=== PATIENT | female | born 1950 | race American Indian/Alaskan Native ===

== ENCOUNTER 2020-11-20 13:29 | Observation (INO) | payer MEDICARE ==
--- NOTE | 2020-11-20 14:31 | Emergency Department Report ---
ED General Adult HPI - General Chief complaint: Fall Stated complaint: FALL PUI?: No Time Seen by Provider: 11/20/20 14:17 Source: patient, EMS ( EMS documentation not available at time of chart dictation ), RN notes reviewed, old records reviewed Mode of arrival: Stretcher Limitations: Other (Dementia and poor historian) - History of Present Illness Initial comments: The patient was evaluated in the emergency department for symptoms described in the history of present illness. He/she was evaluated in the context of the [facility] COVID-19 pandemic, which necessitated consideration that the patient might be at risk for infection with the virus that causes COVID-19. Institutional protocols and algorithms that pertain to the evaluation of patients at risk for COVID-19 are in a state of rapid change based on information released by regulatory bodies including the CDC and federal and state organizations. These policies and algorithms were followed during the patient's care in the emergency department. Please note that these policies, procedures and recommendations changed on a rapid basis. This patient is a 70-year-old female. She is not known to myself previously. She has a history of dementia, cervical strain, hypertension, hypernatremia, and type 2 diabetes. She is sent here from her local nursing care facility for evaluation of closed head injury and fall. History obtained by team [facility], and obtaining collateral information. Patient reportedly had an unwitnessed fall yesterday. Patient is sent to the emergency room today for evaluation. The patient is awake, moving 4 extremities, but minimally verbal. She will not tell me what happened. She will not tell me if she is having any pain. She will not describe qualitative nature of her symptoms, exacerbating factors, relieving factors, or aggravating factors. As per collateral information obtained from [facility] staff, no additional complaints or concerns. -: days(s) Location: head Severity scale (0 -10): 0 Quality: other Consistency: other Improves with: other Worsens with: other Associated Symptoms: other - Related Data Previous Rx's Medication Instructions Recorded Last Taken Type Famotidine [Pepcid] 20 mg PO BID #60 tablet 05/04/20 Unknown Rx oxyCODONE /ACETAMINOPHEN [Percocet 1 tab PO Q6H PRN #14 tablet 05/04/20 Unknown Rx 5/325 mg] Allergies Allergy/AdvReac Type Severity Reaction Status Date / Time No Known Allergies Allergy Unverified 05/03/20 19:15 ED Review of Systems ROS: Stated complaint: FALL Other details as noted in HPI Comment: Unobtainable due to pts medical conditions ED Past Medical Hx - Past Medical History Hx Hypertension: Yes Hx Diabetes: Yes Hx Psychiatric Treatment: Yes (dementia) - Social History Smoking Status: Unknown if ever smoked - Medications Home Medications: Home Medications Medication Instructions Recorded Confirmed Last Taken Type Famotidine [Pepcid] 20 mg PO BID #60 tablet 05/04/20 Unknown Rx oxyCODONE /ACETAMINOPHEN [Percocet 1 tab PO Q6H PRN #14 tablet 05/04/20 Unknown Rx 5/325 mg] ED Physical Exam - General Limitations: Other (Patient is awake. The patient is moving 4 extremities. The patient is demented) General appearance: in no apparent distress - Head Head exam: Present: normocephalic, other (Supraorbital ecchymosis) - Eye Eye exam: Present: normal appearance, EOMI - ENT ENT exam: Present: normal exam, normal orophraynx, mucous membranes moist, normal external ear exam - Neck Neck exam: Present: normal inspection, full ROM. Absent: tenderness, meningismus - Respiratory Respiratory exam: Present: normal lung sounds bilaterally. Absent: respiratory distress, wheezes, rales, rhonchi, stridor, decreased breath sounds - Cardiovascular Cardiovascular Exam: Present: regular rate, normal rhythm, normal heart sounds. Absent: bradycardia, tachycardia, irregular rhythm, systolic murmur, diastolic murmur, rubs, gallop - GI/Abdominal GI/Abdominal exam: Present: soft. Absent: distended, tenderness, guarding, rebound, rigid, pulsatile mass - Extremities Exam Extremities exam: Present: normal inspection (Chronic venous stasis changes noted in the bilateral lower extremities), full ROM, pedal edema (1+ edema in the bilateral lower extremities), other (2+ pulses noted in the bilateral upper and lower extremities. There is no palpable cord. negative Homans sign. Muscular compartments are soft. The pelvis is stable.). Absent: calf tenderne ss - Back Exam Back exam: Present: normal inspection, full ROM. Absent: tenderness, CVA tenderness (R), CVA tenderness (L), paraspinal tenderness, vertebral tenderness - Neurological Exam Neurological exam: Present: other (Patient awake. Patient demented. Patient moving 4 extremities. No facial droop. Tongue midline. EOMI) - Skin Skin exam: Present: warm, dry, intact, normal color. Absent: rash ED Course Vital Signs 11/20/20 11/20/20 11/20/20 14:00 14:16 14:19 Temperature 98.5 F Pulse Rate 94 H 90 Respiratory 18 18 Rate Blood Pressure 160/94 [Right] O2 Sat by Pulse 92 99 Oximetry 11/20/20 17:02 Temperature 99.3 F Pulse Rate 92 H Respiratory 18 Rate Blood Pressure 139/69 [Right] O2 Sat by Pulse 97 Oximetry - Reevaluation(s) Reevaluation #1: 11/20/20 15:40 Differential diagnosis, including but not limited to: Closed head injury, cervical spine injury, electrolyte derangement, pneumonia, urinary tract infection, mechanical fall, orthostasis, vagal event, structural cardiac disease Assessment and plan: 70-year-old female, resolved hypoxia, who was afebrile, with reassuring vital signs, moving 4 extremities, protecting her airway, with a nonspecific and unremarkable physical examination. Patient requires urgent e valuation for fall, CT scan of the brain and cervical spine. Patient is demented, and therefore, does not have decision-making capacity, and is trying to get herself out of the stretcher, and does not respond to verbal techniques, or show of force. She will require temporary restraints, medication with haloperidol and Ativan, EKG, urinalysis, rectal temperature, and noncontrast CT scan of the brain and cervical spine. Elevated troponin reviewed and appreciated, this is nonspecific, patient appears to have normal renal function. We will discuss with cardiology once initial diagnostics have resulted. 11/20/20 16:17 Patient received haloperidol and Ativan. She is still awake and moving 4 extremities, not allowing us to obtain EKG, urinalysis, CT scan of the brain and cervical spine. Patient is demented and does not have decision-making capacity, she will therefore be medicated with Geodon, to allow for acquisition of time sensitive diagnostics. Please note that patient's agitation and underlying dementia has led to a delay in acquisition of diagnostic testing. Reevaluation #2: 11/20/20 17:05 Have discussed patient's history, physical, pertinent laboratory studies and EKG findings with cardiology on-call, Dr. Gordon, of [facility] We agreed to not initiate systemic anticoagulation, and we will give aspirin assuming CT scan of the brain negative for acute findings. Suspect that this is a type II troponin leak. He does advised admission for observation and urgent cardiology consultation would be reasonable. He advises that his group can follow in consultation. CT scan brain, cervical spine pending. Reevaluation #3: 11/20/20 18:09 CT scan of the brain negative for acute findings. Aspirin ordered. Repeat EKG and repeat troponin ordered. Hospital physician, Dr. Villagran, to admit patient to the medical service. Medical decision makin-year-old female, status post fall which was unwitnessed, with abnormal EKG and elevated troponin, to be admitted for observation, urgent cardiology consultation, and further inpatient management. ED Medical Decision Making - Lab Data Result diagrams: 11/20/20 14:34 11/20/20 14:34 Vital Signs 11/20/20 11/20/20 11/20/20 14:00 14:16 14:19 Temperature 98.5 F Pulse Rate 94 H 90 Respiratory 18 18 Rate Blood Pressure 160/94 [Right] O2 Sat by Pulse 92 99 Oximetry Lab Results 11/20/20 11/20/20 11/20/20 Range/Units 14:34 14:34 14:34 WBC 5.3 (4.5-11.0) K/mm3 RBC 4.73 (3.65-5.03) M/mm3 Hgb 13.8 (10.1-14.3) gm/dl Hct 41.3 (30.3-42.9) % MCV 87 (79-97) fl MCH 29 (28-32) pg MCHC 34 (30-34) % RDW 14.6 (13.2-15.2) % Plt Count 234 (140-440) K/mm3 Lymph % (Auto) 14.1 (13.4-35.0) % [place] % (Auto) 8.9 H (0.0-7.3) % Eos % (Auto) 0.0 (0.0-4.3) % Baso % (Auto) 0.1 (0.0-1.8) % Lymph # (Auto) 0.7 L (1.2-5.4) K/mm3 [place] # (Auto) 0.5 (0.0-0.8) K/mm3 Eos # (Auto) 0.0 (0.0-0.4) K/mm3 Baso # (Auto) 0.0 (0.0-0.1) K/mm3 Seg Neutrophils % 76.9 H (40.0-70.0) % Seg Neutrophils # 4.1 (1.8-7.7) K/mm3 PT 12.4 (12.2-14.9) Sec. INR 0.94 (0.87-1.13) Sodium 145 (137-145) mmol/L Potassium 3.7 (3.6-5.0) mmol/L Chloride 108.2 H (98-107) mmol/L Carbon Dioxide 28 (22-30) mmol/L Anion Gap 13 mmol/L BUN 10 (7-17) mg/dL Creatinine 0.6 (0.6-1.2) mg/dL Estimated GFR > 60 ml/min BUN/Creatinine Ratio 17 % Glucose 132 H (65-100) mg/dL Calcium 9.3 (8.4-10.2) mg/dL Troponin T (0.00-0.029) ng/mL Salicylates (2.8-20.0) mg/dL Acetaminophen (10.0-30.0) ug/mL Plasma/Serum Alcohol (0-0.07) % 11/20/20 11/20/20 11/20/20 Range/Units 14:34 14:34 14:34 WBC (4.5-11.0) K/mm3 RBC (3.65-5.03) M/mm3 Hgb (10.1-14.3) gm/dl Hct (30.3-42.9) % MCV (79-97) fl MCH (28-32) pg MCHC (30-34) % RDW (13.2-15.2) % Plt Count (140-440) K/mm3 Lymph % (Auto) (13.4-35.0) % [place] % (Auto) (0.0-7.3) % Eos % (Auto) (0.0-4.3) % Baso % (Auto) (0.0-1.8) % Lymph # (Auto) (1.2-5.4) K/mm3 [place] # (Auto) (0.0-0.8) K/mm3 Eos # (Auto) (0.0-0.4) K/mm3 Baso # (Auto) (0.0-0.1) K/mm3 Seg Neutrophils % (40.0-70.0) % Seg Neutrophils # (1.8-7.7) K/mm3 PT (12.2-14.9) Sec. INR (0.87-1.13) Sodium (137-145) mmol/L Potassium (3.6-5.0) mmol/L Chloride (98-107) mmol/L Carbon Dioxide (22-30) mmol/L Anion Gap mmol/L BUN (7-17) mg/dL Creatinine (0.6-1.2) mg/dL Estimated GFR ml/min BUN/Creatinine Ratio % Glucose (65-100) mg/dL Calcium (8.4-10.2) mg/dL Troponin T (0.00-0.029) ng/mL Salicylates < 0.3 L (2.8-20.0) mg/dL Acetaminophen 5.0 L (10.0-30.0) ug/mL Plasma/Serum Alcohol 0.01 (0-0.07) % 04/03/ Range/Units 14:34 WBC (4.5-11.0) K/mm3 RBC (3.65-5.03) M/mm3 Hgb (10.1-14.3) gm/dl Hct (30.3-42.9) % MCV (79-97) fl MCH (28-32) pg MCHC (30-34) % RDW (13.2-15.2) % Plt Count (140-440) K/mm3 Lymph % (Auto) (13.4-35.0) % [place] % (Auto) (0.0-7.3) % Eos % (Auto) (0.0-4.3) % Baso % (Auto) (0.0-1.8) % Lymph # (Auto) (1.2-5.4) K/mm3 [place] # (Auto) (0.0-0.8) K/mm3 Eos # (Auto) (0.0-0.4) K/mm3 Baso # (Auto) (0.0-0.1) K/mm3 Seg Neutrophils % (40.0-70.0) % Seg Neutrophils # (1.8-7.7) K/mm3 PT (12.2-14.9) Sec. INR (0.87-1.13) Sodium (137-145) mmol/L Potassium (3.6-5.0) mmol/L Chloride (98-107) mmol/L Carbon Dioxide (22-30) mmol/L Anion Gap mmol/L BUN (7-17) mg/dL Creatinine (0.6-1.2) mg/dL Estimated GFR ml/min BUN/Creatinine Ratio % Glucose (65-100) mg/dL Calcium (8.4-10.2) mg/dL Troponin T 0.041 H (0.00-0.029) ng/mL Salicylates (2.8-20.0) mg/dL Acetaminophen (10.0-30.0) ug/mL Plasma/Serum Alcohol (0-0.07) % Lab Results 11/20/20 11/20/20 11/20/20 Range/Units 14:34 14:34 14:34 WBC 5.3 (4.5-11.0) K/mm3 RBC 4.73 (3.65-5.03) M/mm3 Hgb 13.8 (10.1-14.3) gm/dl Hct 41.3 (30.3-42.9) % MCV 87 (79-97) fl MCH 29 (28-32) pg MCHC 34 (30-34) % RDW 14.6 (13.2-15.2) % Plt Count 234 (140-440) K/mm3 Lymph % (Auto) 14.1 (13.4-35.0) % [place] % (Auto) 8.9 H (0.0-7.3) % Eos % (Auto) 0.0 (0.0-4.3) % Baso % (Auto) 0.1 (0.0-1.8) % Lymph # (Auto) 0.7 L (1.2-5.4) K/mm3 [place] # (Auto) 0.5 (0.0-0.8) K/mm3 Eos # (Auto) 0.0 (0.0-0.4) K/mm3 Baso # (Auto) 0.0 (0.0-0.1) K/mm3 Seg Neutrophils % 76.9 H (40.0-70.0) % Seg Neutrophils # 4.1 (1.8-7.7) K/mm3 PT 12.4 (12.2-14.9) Sec. INR 0.94 (0.87-1.13) Sodium 145 (137-145) mmol/L Potassium 3.7 (3.6-5.0) mmol/L Chloride 108.2 H (98-107) mmol/L Carbon Dioxide 28 (22-30) mmol/L Anion Gap 13 mmol/L BUN 10 (7-17) mg/dL Creatinine 0.6 (0.6-1.2) mg/dL Estimated GFR > 60 ml/min BUN/Creatinine Ratio 17 % Glucose 132 H (65-100) mg/dL Calcium 9.3 (8.4-10.2) mg/dL Magnesium (1.7-2.3) mg/dL Total Creatine Kinase (30-135) units/L Troponin T (0.00-0.029) ng/mL Salicylates (2.8-20.0) mg/dL Acetaminophen (10.0-30.0) ug/mL Plasma/Serum Alcohol (0-0.07) % 11/20/20 11/20/20 11/20/20 Range/Units 14:34 14:34 14:34 WBC (4.5-11.0) K/mm3 RBC (3.65-5.03) M/mm3 Hgb (10.1-14.3) gm/dl Hct (30.3-42.9) % MCV (79-97) fl MCH (28-32) pg MCHC (30-34) % RDW (13.2-15.2) % Plt Count (140-440) K/mm3 Lymph % (Auto) (13.4-35.0) % [place] % (Auto) (0.0-7.3) % Eos % (Auto) (0.0-4.3) % Baso % (Auto) (0.0-1.8) % Lymph # (Auto) (1.2-5.4) K/mm3 [place] # (Auto) (0.0-0.8) K/mm3 Eos # (Auto) (0.0-0.4) K/mm3 Baso # (Auto) (0.0-0.1) K/mm3 Seg Neutrophils % (40.0-70.0) % Seg Neutrophils # (1.8-7.7) K/mm3 PT (12.2-14.9) Sec. INR (0.87-1.13) Sodium (137-145) mmol/L Potassium (3.6-5.0) mmol/L Chloride (98-107) mmol/L Carbon Dioxide (22-30) mmol/L Anion Gap mmol/L BUN (7-17) mg/dL Creatinine (0.6-1.2) mg/dL Estimated GFR ml/min BUN/Creatinine Ratio % Glucose (65-100) mg/dL Calcium (8.4-10.2) mg/dL Magnesium 2.10 (1.7-2.3) mg/dL Total Creatine Kinase 809 H (30-135) units/L Troponin T (0.00-0.029) ng/mL Salicylates < 0.3 L (2.8-20.0) mg/dL Acetaminophen (10.0-30.0) ug/mL Plasma/Serum Alcohol 0.01 (0-0.07) % 11/20/20 11/20/20 Range/Units 14:34 14:34 WBC (4.5-11.0) K/mm3 RBC (3.65-5.03) M/mm3 Hgb (10.1-14.3) gm/dl Hct (30.3-42.9) % MCV (79-97) fl MCH (28-32) pg MCHC (30-34) % RDW (13.2-15.2) % Plt Count (140-440) K/mm3 Lymph % (Auto) (13.4-35.0) % [place] % (Auto) (0.0-7.3) % Eos % (Auto) (0.0-4.3) % Baso % (Auto) (0.0-1.8) % Lymph # (Auto) (1.2-5.4) K/mm3 [place] # (Auto) (0.0-0.8) K/mm3 Eos # (Auto) (0.0-0.4) K/mm3 Baso # (Auto) (0.0-0.1) K/mm3 Seg Neutrophils % (40.0-70.0) % Seg Neutrophils # (1.8-7.7) K/mm3 PT (12.2-14.9) Sec. INR (0.87-1.13) Sodium (137-145) mmol/L Potassium (3.6-5.0) mmol/L Chloride (98-107) mmol/L Carbon Dioxide (22-30) mmol/L Anion Gap mmol/L BUN (7-17) mg/dL Creatinine (0.6-1.2) mg/dL Estimated GFR ml/min BUN/Creatinine Ratio % Glucose (65-100) mg/dL Calcium (8.4-10.2) mg/dL Magnesium (1.7-2.3) mg/dL Total Creatine Kinase (30-135) units/L Troponin T 0.041 H (0.00-0.029) ng/mL Salicylates (2.8-20.0) mg/dL Acetaminophen 5.0 L (10.0-30.0) ug/mL Plasma/Serum Alcohol (0-0.07) % - EKG Data -: EKG Interpreted by Me EKG shows normal: sinus rhythm Rate: normal - EKG Data 11/20/20 16:37 Time of interpretation: 16: 37 Sinus rhythm, 93 bpm. Normal axis, QTC 479 ms. Left ventricular hypertrophy. Poor R wave progression, nonspecific ST abnormality. This is an abnormal EKG. The EKG is not a STEMI. - Radiology Data Radiology results: pending, report reviewed, image reviewed interpreted by me: 1 view x-ray of the chest negative for acute findings. Right shoulder orthopedic hardware appreciated. X-ray of the pelvis negative for acute findings. [facility] [address] [place] [address] XRay Report Signed Patient: MARIAM MORA MR#: [id number] 0 : 1950 Acct:[id number] Age/Sex: 70 / F ADM Date: 11/20/20 Loc: ED Attending Dr: Ordering Physician: ULISITO LONGO MD Date of Service: 11/20/20 Procedure(s): XR pelvis 1-2V Accession Number(s): [id number] cc: LUISITO LONGO MD Fluoro Time In Minutes: EXAMINATION: Pelvic radiograph, one view, 11/20/2020 CLINICAL INFORMATION: Fall. Trauma. COMPARISON: None. FINDINGS: There is no evidence of displaced hip fracture or hip dislocation on today's single view. Mild bony degenerative changes of both hips are noted. Signer Name: Birdie Amador MD Signed: 11/20/2020 3:44 PM Workstation Name: [id number] Transcribed By: LASHONDA Dictated By: Birdie Amador MD Electronically Authenticated By: Birdie Amador MD Signed Date/Time: 11/20/201543 DD/ [address] [address] XRay Report Signed Patient: MARIAM MORA MR#: [id number] 0 : 1950 Acct:[id number] Age/Sex: 70 / F ADM Date: 11/20/20 Loc: ED Attending Dr: Ordering Physician: LUISITO LONGO MD Date of Service: 11/20/20 Procedure(s): XR chest 1V ap Accession Number(s): [id number] cc: LUISITO LONGO MD Fluoro Time In Minutes: CHEST 1 VIEW, 11/20/2020 2:29 PM CLINICAL INFORMATION/INDICATION: Chest pain. Trauma. Fall. COMPARISON: Chest radiograph, 05/01/2020 FINDINGS: SUPPORT DEVICES: None. HEART: The cardiac silhouette is normal in size. LUNGS/PLEURA: The lungs are clear of focal airspace disease or significant pleural effusion. ADDITIONAL FINDINGS: No additional acute findings. Postsurgical changes of both shoulders are again noted. IMPRESSION: 1. No felice dence of acute cardiopulmonary process. Signer Name: Birdie Amador MD Signed: 11/20/2020 3:43 PM Workstation Name: [id number] Transcribed By: EB Dictated By: Birdie Amador MD Electronically Authenticated By: Birdie Amador MD Signed Date/Time: 11/20/201542 DD/ [address] [address] Cat Scan Report Signed Patient: MARIAM MORA MR#: [id number] 0 : 1950 Acct:[id number] Age/Sex: 70 / F ADM Date: 11/20/20 Loc: ED Attending Dr: Ordering Physician: LUISITO LONGO MD Date of Service: 11/20/20 Procedure(s): CT cervical spine wo con Accession Number(s): [id number] cc: LUISITO LONGO MD CT cervical spine wo con INDICATION / CLINICAL INFORMATION: 70 years Female; MAIN. TECHNIQUE: Axial CT images of the cervical spine were obtained. Sagittal and coronal reformatted images were produced. All CT scans at this location are performed using CT dose reduction for ALARA by means of automated exposure control. COMPARISON: None available. FINDINGS: POST-SURGICAL CHANGES: None. ALIGNMENT: Straightening of the cervical spine noted, which may be related to patient positioning. VERTEBRAE: No signs of fracture. Vertebral bodies are grossly normal in height throughout. Mild osseous foraminal narrowing bilaterally at C5-6 from uncinate hypertrophy. INTRAVERTEBRAL DISCS: Multilevel, mild disc space narrowing. Broad-based left paracentral disc protrusion is seen at C5-6. There is slight encroachment upon the cervical cord without impingement. Mild disc disease seen at other levels. PARASPINAL SOFT TISSUES: No significant abnormality. ADDITIONAL FINDINGS: None. IMPRESSION: 1. No signs of acute bony trauma to the cervical spine. Signer Name: Tu Schneider MD, III Signed: 11/20/2020 5:54 PM Workstation Name: [id number] Transcribed By: Dictated By: Tu Schneider MD Electronically Authenticated By: Tu Schneider MD Signed Date/Time: 11/20/201753 DD/ 51 Critical care attestation.: If time is entered above; I have spent that time in minutes in the direct care of this critically ill patient, excluding procedure time. ED Disposition Clinical Impression: Fall, Closed head injury, Elevated troponin, Dementia Disposition: OP ADMIT IP TO THIS HOSP Is pt being admited?: Yes Condition: Good Referrals: TREVOR SERNA MD [Primary Care Provider] - 3-5 Days Heart Score - HEART Score History: Slightly suspicious (Entered as slightly suspicious because patient does not offer history) EKG: Non-specific Age: > 65 Risk factors: > 3 risk factors or hx of atherosclerotic disease Troponin: 1-3x normal limit HEART Score: 6 - EKG Read Time Time EKG Completed: 16:38 EKG Read Time: 16:38 - Critical Actions Critical Actions: 4-6 pts:12-16.6% risk of adverse cardiac event. Should be admitted
[2020-11-20] MEDS ORDERED: HALOPERIDOL LACTATE 5 MG/1 ML INJ IM PRN (14:54)
[2020-11-20 15:10] LABS: Basophils % (Auto) 0.1 % (0.0-1.8); Hematocrit 41.3 % (30.3-42.9); Hemoglobin 13.8 gm/dl (10.1-14.3); Lymphocytes # (Auto) 0.7 K/mm3 (1.2-5.4); Lymphocytes % (Auto) 14.1 % (13.4-35.0); Mean Corpuscular HGB Conc 34 % (30-34); Mean Corpuscular Volume 87 fl (79-97); Monocytes # (Auto) 0.5 K/mm3 (0.0-0.8); Monocytes % (Auto) 8.9 % (0.0-7.3); Platelet Count 234 K/mm3 (140-440); Red Blood Count 4.73 M/mm3 (3.65-5.03); Red Cell Distribution Width 14.6 % (13.2-15.2)
[2020-11-20 15:23] LABS: INR 0.94 (0.87-1.13)
[2020-11-20 15:33] LABS: Blood Urea Nitrogen 10 mg/dL (7-17); Calcium 9.3 mg/dL (8.4-10.2); Hemolysis Index 13
[2020-11-20 15:37] LABS: BUN/Creatinine Ratio 17
--- NOTE | 2020-11-20 15:47 | XRay Report ---
CHEST 1 VIEW, 11/20/2020 2:29 PM CLINICAL INFORMATION/INDICATION: Chest pain. Trauma. Fall. COMPARISON: Chest radiograph, 05/01/2020 FINDINGS: SUPPORT DEVICES: None. HEART: The cardiac silhouette is normal in size. LUNGS/PLEURA: The lungs are clear of focal airspace disease or significant pleural effusion. ADDITIONAL FINDINGS: No additional acute findings. Postsurgical changes of both shoulders are again n oted. IMPRESSION: 1. No evidence of acute cardiopulmonary process. Signer Name: Birdie Amador MD Signed: 11/20/2020 3:43 PM Workstation Name: [id number]
--- NOTE | 2020-11-20 15:48 | XRay Report ---
EXAMINATION: Pelvic radiograph, one view, 11/20/2020 CLINICAL INFORMATION: Fall. Trauma. COMPARISON: None. FINDINGS: There is no evidence of displaced hip fracture or hip dislocation on today's single view. M ild bony degenerative changes of both hips are noted. Signer Name: Birdie Amador MD Signed: 11/20/2020 3:44 PM Workstation Name: [id number]
[2020-11-20 15:55] LABS: Chol/HDL Ratio 2.33 %
[2020-11-20] MEDS: LORazepam 2 MG/ML VIAL IM PRN (16:11)
[2020-11-20] MEDS ORDERED: ZIPRASIDONE MESYLATE 20 MG VIAL IM PRN (16:17)
[2020-11-20] MEDS ORDERED: LACTATED RINGERS 500 ML IV ONE (16:17)
[2020-11-20] MEDS ORDERED: WATER FOR INJ Sterile (PF) 10 ML ONE (16:28)
[2020-11-20 17:34] LABS: Bilirubin,Urine NEG (Negative); Blood,Urine NEG (Negative); Color,Urine Yellow (Yellow); Mucus,Urine FEW /HPF; Protein,Urine <15 mg/dL mg/dL (Negative); WBC,Urine < 1.0 /HPF (0.0-6.0)
--- NOTE | 2020-11-20 17:59 | Cat Scan Report ---
CT cervical spine wo con INDICATION / CLINICAL INFORMATION: 70 years Female; MAIN. TECHNIQUE: Axial CT images of the cervical spine were obtained. Sagittal and coronal reformatted images were pr oduced. All CT scans at this location are performed using CT dose reduction for ALARA by means of aut omated exposure control. COMPARISON: None available. FINDINGS: POST-SURGICAL CHANGES: None. ALIGNMENT: Straightening of the cervical spine noted, which may be related to patient positioning. VERTEBRAE: No signs of fracture. Vertebral bodies are grossly normal in height throughout. Mild osseous foraminal narrowing bilaterally at C5-6 from uncinate hypertrophy. INTRAVERTEBRAL DISCS: Multilevel, mild disc space narrowing. Broad-based left paracentral disc protru alfredito is seen at C5-6. There is slight encroachment upon the cervical cord without impingement. Mild d isc disease seen at other levels. PARASPINAL SOFT TISSUES: No significant abnormality. ADDITIONAL FINDINGS: None. IMPRESSION: 1. No signs of acute bony trauma to the cervical spine. Signer Name: Tu Schneider MD, III Signed: 11/20/2020 5:54 PM Workstation Name: [email or web address]
--- NOTE | 2020-11-20 18:02 | Cat Scan Report ---
CT head/brain wo con INDICATION / CLINICAL INFORMATION: 70 years Female; MAIN. TECHNIQUE: Routine CT head without contrast. All CT scans at this location are performed using CT dos e reduction for ALARA by means of automated exposure control. COMPARISON: 05/01/2020 FINDINGS: BRAIN / INTRACRANIAL CONTENTS: No acute hemorrhage, mass effect, midline shift, hydrocephalus, or acu te, large territorial infarct. Mild, diffuse cerebral atrophy. Moderate degree of hippocampal atrophy suggested bilaterally. There are mild areas of decreased attenuation in the white matter of the cerebral hemispheres. These are nonspecific findings and may be related to microangiopathy (hypertension, diabetes, atheroscleros is), given the patient's age. It might be difficult to evaluate for small areas of ischemia without d iffusion imaging by MRI. CRANIOCERVICAL JUNCTION: No significant abnormality. ORBITS: No significant abnormality of visualized orbits. SINUSES / MASTOIDS: Visualized paranasal sinuses and mastoid air cells are essentially clear. ADDITIONAL FINDINGS: Subcutaneous soft tissue swelling is seen in the right frontal and periorbital r egion. No signs of underlying calvarial fracture. Atherosclerotic disease is seen in the anterior an d posterior circulation. IMPRESSION: 1. No focal mass, intracranial hemorrhage, hydrocephalus, or acute, large territorial infarct. Signer Name: Tu Schneider MD, III Signed: 11/20/2020 5:57 PM Workstation Name: [id number], [id number]
[2020-11-20] MEDS ORDERED: ASPIRIN 325 MG TAB PO ONE (18:08)
--- NOTE | 2020-11-20 18:10 | History and Physical Report ---
History of Present Illness Chief complaint: She is confused and she fell History of present illness: 70 YO Female [facility] Facility Resident at [facility] with HTN, DM, Vascular Dementia, Cerebral Atherosclerosis, DM presents to ED for evaluation. The patient is confused with diminished cognition and is unable to provide detailed history at the time my evaluation. Patient history taken from EMS staff, ED staff, as well as [facility] facility staff. As per staff the patient has experienced increased confusion over the past 1 week which worsened after sustaining a fall with resultant head trauma. The patient experienced increased confusion today. EMS was notified an d upon arrival the patient was found to be in distress and subsequently transported to [facility] for further care and evaluation of the aforementioned symptoms. The patient was seen and evaluated in the emergency department. All lab and imaging studies reviewed. Patient found to have clinical findings consistent with non-ST elevation IL, as well as vascular dementia with behavioral disturbance. Patient placed in observation status and admitted to telemetry for further care and evaluation due to increased risk of decompensation. Cardiology team consulted in ED. Patient has diminished cognition at time of my evaluation but has a positive gag reflex and is able to protect her airway without difficulty. Advanced care planning conducted in ED. Prior admission on 05/01/2020 reviewed. All medication listed at time of admission has been reconciled. Past History Past Medical History: diabetes, hypertension Past Surgical History: No surgical history, Other (Reviewed) Social history: . denies: smoking, alcohol abuse, prescription drug abuse Family history: diabetes, hypertension Medications and Allergies Allergies Allergy/AdvReac Type Severity Reaction Status Date / Time No Known Allergies Allergy Unverified 05/03/20 19:15 Home Medications Medication Instructions Recorded Confirmed Last Taken Type Famotidine [Pepcid] 20 mg PO BID #60 tablet 05/04/20 Unknown Rx oxyCODONE /ACETAMINOPHEN [Percocet 1 tab PO Q6H PRN #14 tablet 05/04/20 Unknown Rx 5/325 mg] Active Meds: Active Medications Haloperidol Lactate (Haloperidol Lactate 5 Mg/1 Ml Inj) 2.5 mg IM Q6HR PRN PRN Reason: Agitation Last Admin: 11/20/20 16:11 Dose: 2.5 mg Documented by: Lorazepam (Lorazepam 2 Mg/Ml Vial) 2 mg IM Q4HR PRN PRN Reason: Agitation Last Admin: 11/20/20 16:11 Dose: 2 mg Documented by: Ziprasidone (Ziprasidone Mesylate 20 Mg Vial) 10 mg IM Q2H PRN PRN Reason: Agitation Review of Systems ROS unobtainable: due to mental status Exam - Constitutional Vitals: Temp Pulse Resp BP Pulse Ox 99.3 F 92 H 18 139/69 97 11/20/20 17:02 11/20/20 17:02 11/20/20 17:02 11/20/20 17:02 11/20/20 17:02 General appearance: Present: mild distress, cachectic - EENT Eyes: Present: PERRL ENT: clear oral mucosa, hearing decreased - Neck Neck: Present: supple, normal ROM - Respiratory Respiratory effort: normal Respiratory: bilateral: CTA - Cardiovascular Heart Sounds: Present: S1 & S2. Absent: rub, click - Extremities Extremities: pulses symmetrical, No edema Peripheral Pulses: within normal limits - Abdominal General gastrointestinal: Present: soft, non-tender, non-distended, normal bowel sounds Female genitourinary: Present: normal - Integumentary Integumentary: Present: clear, warm, dry - Musculoskeletal Musculoskeletal: gait normal, strength equal bilaterally - Psychiatric Psychiatric: no appropriate mood/affect, no intact judgment & insight, no memory intact - Neurologic Neurologic: CNII-XII intact, no focal deficits, moves all extremities, no gait normal HEART Score - HEART Score Troponin: Troponin T 0.041 ng/mL (0.00-0.029) H 11/20/20 14:34 Results - Labs CBC & Chem 7: 11/20/20 14:34 11/20/20 14:34 Labs: Abnormal lab results 11/20/20 11/20/20 11/20/20 Range/Units 14:34 14:34 14:34 Butts % (Auto) 8.9 H (0.0-7.3) % Lymph # (Auto) 0.7 L (1.2-5.4) K/mm3 Seg Neutrophils % 76.9 H (40.0-70.0) % Chloride 108.2 H (98-107) mmol/L Glucose 132 H (65-100) mg/dL Total Creatine Kinase 809 H (30-135) units/L Troponin T (0.00-0.029) ng/mL HDL Cholesterol (40-59) mg/dL Salicylates (2.8-20.0) mg/dL Acetaminophen (10.0-30.0) ug/mL 11/20/20 11/20/20 11/20/20 Range/Units 14:34 14:34 14:34 Butts % (Auto) (0.0-7.3) % Lymph # (Auto) (1.2-5.4) K/mm3 Seg Neutrophils % (40.0-70.0) % Chloride (98-107) mmol/L Glucose (65-100) mg/dL Total Creatine Kinase (30-135) units/L Troponin T 0.041 H (0.00-0.029) ng/mL HDL Cholesterol 62 H (40-59) mg/dL Salicylates < 0.3 L (2.8-20.0) mg/dL Acetaminophen 5.0 L (10.0-30.0) ug/mL Assessment and Plan - Patient Problems (1) Non-ST elevation IL (NSTEMI) Current Visit: Yes Status: Acute Plan to address problem: Serial cardiac enzymes, EKG, remote telemetry, cardiology team consulted in ED, further care and evaluation as per cardiology team. (2) Hypertension Current Visit: Yes Status: Acute Qualifiers: Hypertension type: essential hypertension Qualified Code(s): I10 - Essential (primary) hypertension Plan to address problem: Monitor blood pressure every shift, continue medical management (3) Diabetes Current Visit: Yes Status: Acute Plan to address problem: Insulin protocol, hypoglycemia protocol, consistent carbohydrate diet, Accu- Chek. (4) Cerebral atherosclerosis Current Visit: Yes Status: Acute Plan to address problem: Risk factor reduction, supportive care, antiplatelet therapy as clinically indicated (5) Vascular dementia with behavioral disturbance Current Visit: Yes Status: Acute Plan to address problem: Verbal prompting, verbal redirection, benzodiazepine therapy as clinically indicated (6) DVT prophylaxis Current Visit: No Status: Acute Plan to address problem: SCD to bilateral lower extremities while in bed (7) Advance care planning Current Visit: Yes Status: Acute Plan to address problem: Disease education conducted, patient is full code, care plan discussed, prognosis discussed, +30 minutes.
[2020-11-20] MEDS ORDERED: ONDANSETRON 4 MG/2 ML INJ IV PRN (18:11)
[2020-11-20] MEDS ORDERED: ACETAMINOPHEN 325 MG TAB PO PRN (18:11)
[2020-11-20 19:28] LABS: Free T4 (Free Thyroxine) 1.2 ng/dL (0.76-1.46)
[2020-11-20] MEDS ORDERED: LACTATED RINGERS 1,000 ML IV ONE (19:53)
[2020-11-20] MEDS ORDERED: LACTATED RINGERS 1000 ML IV SOLN IV ONE (19:57)
[2020-11-20] MEDS: FAMOTIDINE 10 MG TAB PO SCH (22:42)
[2020-11-21] MEDS ORDERED: HEPARIN 10,000 UNITS/10 ML VIAL IV PRN (08:27)
[2020-11-21] MEDS ORDERED: HEPARIN/ 0.45% NACL DRIP 25,000 UNIT/500 ML BAG IV SCH (09:00)
[2020-11-21] MEDS: FAMOTIDINE 10 MG TAB PO SCH ×2 (09:48→22:46)
[2020-11-21] MEDS: ASPIRIN EC 325 MG TAB PO SCH (09:48)
[2020-11-21 10:25] LABS: Hematocrit 39.9 % (30.3-42.9); Hemoglobin 13.7 gm/dl (10.1-14.3)
[2020-11-21 10:41] LABS: INR 0.97 (0.87-1.13)
[2020-11-21 10:42] LABS: Partial Thromboplastin Time 27.4 Sec. (24.2-36.6)
--- NOTE | 2020-11-21 11:32 | Progress Note ---
Assessment and Plan (1) Non-ST elevation DE (NSTEMI) Current Visit: Yes Status: Acute Plan to address problem: Serial cardiac enzymes, EKG, remote telemetry, cardiology team consulted in ED, further care and evaluation as per cardiology team. Start on heparin drip, follow cardiology recommendation (2) Hypertension Current Visit: Yes Status: Acute Qualifiers: Hypertension type: essential hypertension Qualified Code(s): I10 - Essential (primary) hypertension Plan to address problem: Monitor blood pressure every shift, continue medical management (3) Diabetes Current Visit: Yes Status: Acute Plan to address problem: Insulin protocol, hypoglycemia protocol, consistent carbohydrate diet, Accu- Chek. (4) Cerebral atherosclerosis Current Visit: Yes Status: Acute Plan to address problem: Risk factor reduction, supportive care, antiplatelet therapy as clinically indicated (5) Vascular dementia with behavioral disturbance Current Visit: Yes Status: Acute Plan to address problem: Verbal prompting, verbal redirection, benzodiazepine therapy as clinically indicated (6) DVT prophylaxis Current Visit: No Status: Acute Plan to address problem: SCD to bilateral lower extremities while in bed (7) Advance care planning Current Visit: Yes Status: Acute Plan to address problem: Disease education conducted, patient is full code, care plan discussed, prognosis discussed, +30 minutes. Subjective Date of service: 11/21/20 Interval history: Patient seen and examined. Medical records and medication list reviewed. No acute event overnight noted by the RN. Patient is a very poor historian. Unable to get any question answered Discussed plan of care at bedside with patient's. Objective - Exam Narrative Exam: GENERAL: well-developed and well-nourished elderly female lying on bed appeared to be in no discomfort. HEENT: Normocephalic. Atraumatic. No conjunctival congestion or icterus. Patient has moist mucous membranes. NECK: Supple. Trachea midline. CHEST/LUNGS: Clear to auscultated bilaterally, breathing nonlabored. No wheezes crackles or rhonchi. HEART/CARDIOVASCULAR: Regular in rate and rhythm. S1 and S2 positive. ABDOMEN: Abdomen is soft, nontender. Patient has normal bowel sounds. SKIN: There is no rash. Warm and dry. NEURO: No focal motor deficit. Pleasantly confused MUSCULOSKELETAL: No joint effusion or tenderness. EXTRIMITY: No edema, no cyanosis or clubbing. PSYCH: Unable to assess. - Constitutional Vitals: Vital Signs - 12hr 11/21/20 11/21/20 11/21/20 04:22 04:29 07:11 Temperature 97.8 F 97.9 F Pulse Rate 67 67 82 Pulse Rate [ Left Radial] Respiratory 18 18 Rate Blood Pressure 151/73 132/72 O2 Sat by Pulse 98 99 Oximetry 11/21/20 11/21/20 08:29 11:16 Temperature Pulse Rate Pulse Rate [ 82 Left Radial] Respiratory 20 Rate Blood Pressure O2 Sat by Pulse 100 Oximetry - Labs CBC & Chem 7: 11/21/20 09:50 11/20/20 14:34 Labs: Abnormal lab results 11/20/20 11/20/20 11/20/20 Range/Units 14:34 14:34 14:34 Rice % (Auto) 8.9 H (0.0-7.3) % Lymph # (Auto) 0.7 L (1.2-5.4) K/mm3 Seg Neutrophils % 76.9 H (40.0-70.0) % Chloride 108.2 H (98-107) mmol/L Glucose 132 H (65-100) mg/dL Total Creatine Kinase 809 H (30-135) units/L Troponin T (0.00-0.029) ng/mL HDL Cholesterol (40-59) mg/dL Salicylates (2.8-20.0) mg/dL Acetaminophen (10.0-30.0) ug/mL 11/20/20 11/20/20 11/20/20 Range/Units 14:34 14:34 14:34 Rice % (Auto) (0.0-7.3) % Lymph # (Auto) (1.2-5.4) K/mm3 Seg Neutrophils % (40.0-70.0) % Chloride (98-107) mmol/L Glucose (65-100) mg/dL Total Creatine Kinase (30-135) units/L Troponin T 0.041 H (0.00-0.029) ng/mL HDL Cholesterol 62 H (40-59) mg/dL Salicylates < 0.3 L (2.8-20.0) mg/dL Acetaminophen 5.0 L (10.0-30.0) ug/mL 11/20/20 11/20/20 11/21/20 Range/Units 18:41 21:25 00:53 Rice % (Auto) (0.0-7.3) % Lymph # (Auto) (1.2-5.4) K/mm3 Seg Neutrophils % (40.0-70.0) % Chloride (98-107) mmol/L Glucose (65-100) mg/dL Total Creatine Kinase (30-135) units/L Troponin T 0.045 H 0.033 H D 0.034 H (0.00-0.029) ng/mL HDL Cholesterol (40-59) mg/dL Salicylates (2.8-20.0) mg/dL Acetaminophen (10.0-30.0) ug/mL HEART Score - HEART Score EKG: Non-specific Age: > 65 Risk factors: > 3 risk factors or hx of atherosclerotic disease Troponin: Troponin T 0.034 ng/mL (0.00-0.029) H 11/21/20 00:53 Troponin: 1-3x normal limit - Critical Actions Critical Actions: 4-6 pts:12-16.6% risk of adverse cardiac event. Should be admitted
--- NOTE | 2020-11-21 16:56 | Consultation ---
History of Present Illness Consult date: 11/21/20 Consult reason: abnormal cardiac enzymes History of present illness: 70F with PMHx of vascular dementia, HTN, and DM who is admitted from SNF for evaluation of confusion and fall. Workup showed mild troponin elevation (0.4, flat trend), which has prompted cardiology consultation. Of note, patient was confused upon hospital presentation and is currently asleep and does not awaken to voice/touch. Per RN, patient is non-communicative at baseline. History, thus, obtained from chart review. Patient reportedly had increasing confusion over last week and had a fall. Workup thus far notable for elevated CK 809. Additionally, CTOH, CT c-spine, and pelvic xray without acute findings. 11/20/20 (at 1633) EKG - SR with PACs, no ischemic changes Tele - reviewed, SR, no events Past History Past Medical History: diabetes, hypertension Past Surgical History: No surgical history, Other (Reviewed) Social history: . denies: smoking, alcohol abuse, prescription drug abuse Family history: diabetes, hypertension Medications and Allergies Allergies Allergy/AdvReac Type Severity Reaction Status Date / Time No Known Allergies Allergy Unverified 05/03/20 19:15 Home Medications Medication Instructions Recorded Confirmed Last Taken Type Famotidine [Pepcid] 20 mg PO BID #60 tablet 05/04/20 Unknown Rx oxyCODONE /ACETAMINOPHEN [Percocet 1 tab PO Q6H PRN #14 tablet 05/04/20 Unknown Rx 5/325 mg] Active Meds: Active Medications Acetaminophen (Acetaminophen 325 Mg Tab) 650 mg PO Q4H PRN PRN Reason: Pain MILD(1-3)/Fever >100.5/ASHER Aspirin (Aspirin Ec 325 Mg Tab) 325 mg PO QDAY [facility] Last Admin: 11/21/20 09:48 Dose: 325 mg Documented by: Atorvastatin Calcium (Atorvastatin 40 Mg Tab) 80 mg PO QHS [facility] Famotidine (Famotidine 10 Mg Tab) 10 mg PO BID [facility] Last Admin: 11/21/20 09:48 Dose: 10 mg Documented by: Haloperidol Lactate (Haloperidol Lactate 5 Mg/1 Ml Inj) 2.5 mg IM Q6HR PRN PRN Reason: Agitation Last Admin: 11/20/20 16:11 Dose: 2.5 mg Documented by: Heparin Sodium (Porcine) (Heparin 10,000 Units/10 Ml Vial) 2,400 unit 40 unit/kg (2400 unit) IV Q6H PRN PRN Reason: Anti-Xa Assay < 0.1 units/ml Heparin Sodium/Sodium Chloride (Heparin/ 0.45% Nacl-25,000 Unit/500 Ml) 25,000 unit in 500 mls @ 16 mls/hr IV TITRATE KENNY; Protocol Last Admin: 11/21/20 12:48 Dose: 800 units/hr, 16 mls/hr Documented by: Lorazepam (Lorazepam 2 Mg/Ml Vial) 2 mg IM Q4HR PRN PRN Reason: Agitation Last Admin: 11/20/20 16:11 Dose: 2 mg Documented by: Ondansetron HCl (Ondansetron 4 Mg/2 Ml Inj) 4 mg IV Q8H PRN PRN Reason: Nausea And Vomiting Sodium Chloride (Sodium Chloride 0.9% 10 Ml Flush Syringe) 10 ml IV BID KENNY Last Admin: 11/21/20 09:49 Dose: 10 ml Documented by: Sodium Chloride (Sodium Chloride 0.9% 10 Ml Flush Syringe) 10 ml IV PRN PRN PRN Reason: LINE FLUSH Ziprasidone (Ziprasidone Mesylate 20 Mg Vial) 10 mg IM Q2H PRN PRN Reason: Agitation Review of Systems ROS unobtainable: due to mental status Physical Examination Vital Signs Pulse Resp BP Pulse Ox 94 H 18 160/94 92 11/20/20 14:00 11/20/20 14:00 11/20/20 14:00 11/20/20 14:00 Narrative exam: Constitutional: frail, emaciated, in no acute distress Skin: warm and dry to touch, no rash Head: no scleral icterus, atraumatic ENT: ears,nose and throat unremarkable, mucus membrane dry Neck: JVP normal, supple Chest: normal symmetry, clear to auscultation Cardiac: regular rate and rhythm, no murmurs, no gallops, no rubs detected Abdomen: soft/nt/nd Extremities & Back: no cyanosis present, no edema observed Psychiatric: unable to assess mood/affect Neuro: non-verbal, not responsive to voice/touch, unable to do motor exam Results 11/21/20 09:50 11/20/20 14:34 Coagulation 11/21/20 Range/Units 09:50 PT 12.7 (12.2-14.9) Sec. INR 0.97 (0.87-1.13) APTT 27.4 (24.2-36.6) Sec. CBC 11/21/20 Range/Units 09:50 Hgb 13.7 (10.1-14.3) gm/dl Hct 39.9 (30.3-42.9) % Plt Count 212 (140-440) K/mm3 Assessment and Plan #Troponin elevation - flat trend #Recent fall - CK elevated, CTOH, CT c-spine, and pelvic xray negative for acute findings #Vascular dementia -nonverbal at baseline #HTN #DM Patient has non-specific troponin elevation with flat trend in setting of elevated CK. No ischemic changes on EKG. Presentation is unlikely to be related to acute NM. Would continue conservative cardiac management at this time. Continue ASA and atorvastatin. Will check echo.
[2020-11-21] MEDS: LORazepam 2 MG/ML VIAL IM PRN (17:59)
[2020-11-22] MEDS: LORazepam 2 MG/ML VIAL IM PRN (05:12)
[2020-11-22] MEDS: FAMOTIDINE 10 MG TAB PO SCH (10:28)
[2020-11-22] MEDS: ASPIRIN EC 325 MG TAB PO SCH (10:29)
--- NOTE | 2020-11-22 14:29 | Progress Note ---
Assessment and Plan - Patient Problems (1) Elevated troponin Current Visit: Yes Status: Acute Plan to address problem: Nonspecific mild decrease in troponin levels, there are no specific cardiac complaints, no further cardiac work-up is indicated, will follow intermittently. Subjective Date of service: 11/22/20 Interval history: Patient is comfortable, but noncommunicative. No acute distress. No cardiac complaints reported. Objective Vital Signs Temp Pulse Pulse Pulse Resp BP Pulse Ox 11/22/20 10:00 85 85 18 98 11/22/20 07:35 98.4 F 85 18 153/51 98 11/22/20 04:00 95 H 11/22/20 03:57 98.5 F 95 H 17 153/68 96 11/21/20 23:53 98.5 F 78 18 125/55 98 11/21/20 20:00 86 86 86 18 98 11/21/20 19:55 98.3 F 86 18 121/69 98 11/21/20 16:12 98.6 F 79 18 135/78 97 - Physical Examination General: Other (Patient is noncommunicative) HEENT: Positive: PERRL Neck: Positive: neck supple Cardiac: Positive: Reg Rate and Rhythm Lungs: Positive: Decreased Breath Sounds Neuro: Positive: Grossly Intact Abdomen: Positive: Soft Skin: Positive: Clear Extremities: Absent: edema
--- NOTE | 2020-11-22 14:56 | Discharge Summary ---
Providers - Providers Date of Admission: 11/20/20 18:11 Date of discharge: 11/22/20 Attending physician: JEFFREY GRIGGS 11/20/20 Consult to Cardiac Rehabilitation [CONS] Routine Reason For Exam: Phase I 11/20/20 16:46 Consult to Physician [CONS] Urgent Comment: Consulting Provider: CORY PABON Physician Instructions: Reason For Exam: elevated troponin Primary care physician: TREVOR SERNA Hospitalization Condition: Good Pertinent studies: Chest x-ray, cervical spine CT, head CT, pelvic x-ray, Hospital course: This is a 70-year-old -[place] female with PMHx of vascular dementia, HTN, and DM who is admitted from assisted living facility for evaluation of confusion and fall. Workup showed CT head no acute infarct, mild troponin elevation (0.4, flat trend) in the ER. Patient was admitted to the hospital and cardiology was consulted. Patient remains confused and mostly noncommunicat tariq, was unable to get detailed history from the patient. Discussed with clinical updates and patient's condition with patient daughter and apparently patient has history of severe dementia which is progressively declining. Patient mostly needed assistance for her daily activities. Patient also noted to have elevated CK 809. Additionally CT c-spine, and pelvic xray without acute findings. Patient was placed on IV fluid hydration, and given supportive care. Patient was then discharged back to assisted living facility with 24/7 assistance and care. Discharge plan and management was thoroughly discussed with the patient daughter and she verbalized understanding and agreement with the plan. Disposition: [id number] ANOTHER TYPE [facility] Final Discharge Diagnosis (Prints w/discharge instructions): NSTEMI likely type II, hypertension, diabetes type 2, cerebral atherosclerosis, vascular dementia with behavioral disturbance, status post fall. Time spent for discharge: 34 minutes Core Measure Documentation - Palliative Care Palliative Care/ Comfort Measures: Not Applicable - Core Measures Any of the following diagnoses?: none Exam - Physical Exam Narrative exam: GENERAL: well-developed and well-nourished elderly female lying on bed appeared to be in no discomfort. HEENT: Normocephalic. Atraumatic. No conjunctival congestion or icterus. Patient has moist mucous membranes. NECK: Supple. Trachea midline. CHEST/LUNGS: Clear to auscultated bilaterally, breathing nonlabored. No wheezes crackles or rhonchi. HEART/CARDIOVASCULAR: Regular in rate and rhythm. S1 and S2 positive. ABDOMEN: Abdomen is soft, nontender. Patient has normal bowel sounds. SKIN: There is no rash. Warm and dry. NEURO: No focal motor deficit. Pleasantly confused MUSCULOSKELETAL: No joint effusion or tenderness. EXTRIMITY: No edema, no cyanosis or clubbing. PSYCH: Unable to assess. - Constitutional Vitals: Temp Pulse Resp BP Pulse Ox 98.4 F 85 18 123/58 98 11/22/20 07:35 11/22/20 10:00 11/22/20 10:00 11/22/20 07:35 11/22/20 10:00 Plan Activity: advance as tolerated Weight Bearing Status: Non-Weight Bearing Diet: low fat, low salt Additional Instructions: Need assistance for ambulation Follow up with: TREVOR SERNA MD [Primary Care Provider] - 3-5 Days
[2020-11-22 18:39] VITALS: BP 122/58
== END 2020-11-22 20:51 | disposition other institution (70) ==
LOC: ED 13:29 → 4A 18:11 → OBSVTOIN 11-22 08:28 → INTOOBSV 11-22 08:28
PROVIDERS: ADMIT Internal Medicine; ATTEND Internal Medicine
DX: S09.90XA Unspecified injury of head, initial encounter (principal); I21.4 Non-ST elevation (NSTEMI) myocardial infarction; I10 Essential (primary) hypertension; E11.9 Type 2 diabetes mellitus without complications; I70.90 Unspecified atherosclerosis; F01.50 Vascular dementia, unspecified severity, without behavioral disturbance, psychotic disturbance, mood disturbance, and anxiety; F03.90 Unspecified dementia, unspecified severity, without behavioral disturbance, psychotic disturbance, mood disturbance, and anxiety; R77.8 Other specified abnormalities of plasma proteins; Z79.82 Long term (current) use of aspirin; W19.XXXA Unspecified fall, initial encounter; Y92.89 Other specified places as the place of occurrence of the external cause; Y93.89 Activity, other specified; Y99.8 Other external cause status
CPT/HCPCS: 36415; 70450; 71045; 72125; 72170; 80048; 80061; 81001; 82550; 82962; 83735; 83880; 84439; 84443; 84484; 85014; 85018; 85025; 85049; 85520; 85610; 85730; 87086; 87641; 93005; 96365; 96366; 96372; 99285; A9270; G0378; J1630; J1644; J2060; J3486; J7120; 80320; G0480